=== PATIENT | male | born 1960 | race Caucasian/White ===

== ENCOUNTER 2021-12-04 19:31 | Emergency (ER) | payer BC, OTHER ==
[~2021-12-04] VITALS: Ht 175.3 cm; Wt 56.7 kg
[~2021-12-04 19:31] MED LIST: CHLO25CA22 PO
--- NOTE | 2021-12-04 20:40 | NUR ---
[id number] FOR PALPITATIONS INTERMITTENTLY TODAY THAT HAVE SINCE RESOLVED. PT IS NOTED VERY ANXIOUS. PT HAD A CARDIOLIGST APPT TODAY. PT AWAKE AND ALERT BREATHING EVEN AND UNLABORED. ALL V/S WNL.
[2021-12-04 21:12] LABS: BASOPHILS % (AUTO) 0.7 % (0.0-2.0); HEMATOCRIT 43 % (39-51); HEMOGLOBIN 14.4 g/dL (13.5-17.5); LYMPHOCYTES # (AUTO) 1.2 K/uL (0.8-4.8); LYMPHOCYTES % (AUTO) 22.6 % (20.0-44.0); MEAN CORPUSCULAR HGB CONC 33 g/dl (31.0-36.0); MEAN CORPUSCULAR VOLUME 86 fL (80-96); MONOCYTES # (AUTO) 0.5 K/uL (0.1-1.30); MONOCYTES % (AUTO) 8.9 % (2.0-12.0); NEUTROPHILS # (AUTO) 3.5 K/uL (1.8-8.9); NEUTROPHILS % (AUTO) 64.8 % (43.0-81.0); PLATELET COUNT (AUTO) 176 K/uL (150-450); RED BLOOD CELL COUNT(AUTO) 5.01 MIL/uL (4.5-6.0); WHITE BLOOD COUNT (AUTO) 5.3 K/uL (4.3-11.0)
[2021-12-04 21:27] LABS: CALCIUM, SERUM 9.4 mg/dL (8.5-10.1); CARBON DIOXIDE 28 mmol/L (21-32); CHLORIDE 103 mmol/L (98-107); GLUCOSE 92 mg/dL (74-106); POTASSIUM 3.9 mmol/L (3.5-5.1); SODIUM SERUM 140 mmol/L (136-145); UREA NITROGEN, BLOOD 14 mg/dL (7-18)
[2021-12-04 21:32] LABS: ALANINE AMINOTRANSFERASE 16 U/L (12-78); ALKALINE PHOSPHATASE 74 U/L (46-116); ASPARTATE AMINOTRANSFERASE 14 U/L (15-37); BILIRUBIN,DIRECT 0.2 mg/dL (0.0-0.2); TOTAL PROTEIN, SERUM 7.5 g/dL (6.4-8.2)
[2021-12-04] MEDS ORDERED: LORAZEPAM 1 MG TABLET PO ONE (22:30)
[2021-12-04] MEDS ORDERED: LORAZEPAM 1 MG TABLET ONE (22:35)
[2021-12-05 00:12] VITALS: BP 132/83
--- NOTE | 2021-12-05 00:12 | NUR ---
Patient discharged to home in stable condition. Written and verbal after care instructions given. Patient verbalizes understanding of instruction.
== END 2021-12-05 00:13 | disposition home or self-care (01) ==
LOC: ER 19:33
DX: F41.9 Anxiety disorder, unspecified (principal); I48.91 Unspecified atrial fibrillation; I10 Essential (primary) hypertension; K21.9 Gastro-esophageal reflux disease without esophagitis; Z88.0 Allergy status to penicillin; Z79.899 Other long term (current) drug therapy
CPT/HCPCS: 36415; 71045-TC; 80048-TC; 80076-TC; 84484-TC; 85025-TC

== ENCOUNTER 2023-07-21 12:02 | Inpatient (IN) | payer OTHER, MEDICARE ==
[~2023-07-21] VITALS: Ht 175.3 cm; Wt 70.3 kg
[2023-07-21] MEDS ORDERED: METOPROLOL TARTRATE INJ 5 MG/5 ML AMPUL IVP ONE (12:30)
[2023-07-21] MEDS ORDERED: METOPROLOL TARTRATE INJ 5 MG/5 ML AMPUL ONE (12:36)
[2023-07-21 12:58] LABS: BASOPHILS % (AUTO) 0.6 % (0.0-2.0); EOSINOPHILS # (AUTO) 0.3 K/uL (0.0-0.7); EOSINOPHILS % (AUTO) 3.9 % (0.0-6.0); HEMATOCRIT 46 % (39-51); HEMOGLOBIN 15.3 g/dL (13.5-17.5); MEAN CORPUSCULAR HEMOGLOBIN 29 PG (26.0-33.0); MEAN CORPUSCULAR HGB CONC 33 g/dl (31.0-36.0); MEAN CORPUSCULAR VOLUME 87 fL (80-96); MONOCYTES # (AUTO) 0.4 K/uL (0.1-1.30); MONOCYTES % (AUTO) 6.6 % (2.0-12.0); NEUTROPHILS # (AUTO) 3.9 K/uL (1.8-8.9); NEUTROPHILS % (AUTO) 58.9 % (43.0-81.0); PLATELET COUNT (AUTO) 176 K/uL (150-450); RED BLOOD CELL COUNT(AUTO) 5.26 MIL/uL (4.5-6.0); RED CELL DISTRIBUTION WIDTH 13.1 % (11.5-15.0); WHITE BLOOD COUNT (AUTO) 6.7 K/uL (4.3-11.0)
[2023-07-21 13:10] LABS: CALCIUM, SERUM 9.4 mg/dL (8.5-10.1); CARBON DIOXIDE 28 mmol/L (21-32); CHLORIDE 100 mmol/L (98-107); CREATININE 0.9 mg/dL (0.6-1.3); GLUCOSE 167 mg/dL (74-106); POTASSIUM 3.8 mmol/L (3.5-5.1); SODIUM SERUM 136 mmol/L (136-145); UREA NITROGEN, BLOOD 16 mg/dL (7-18)
[2023-07-21 13:25] LABS: NT-PRO BNP 166 pg/mL (0-125)
[2023-07-21] MEDS ORDERED: METOPROLOL TARTRATE 25 MG TABLET PO ONE (15:00)
[2023-07-21] MEDS ORDERED: METOPROLOL TARTRATE 50 MG TABLET ONE (15:26)
[2023-07-21] MEDS ORDERED: METO-357 PO (15:28)
[2023-07-21] MEDS ORDERED: MIRT7.5T10 PO (15:28)
[2023-07-21] MEDS ORDERED: APIX5TAB PO (15:28)
[2023-07-21] MEDS ORDERED: LOSA100T31 PO (15:28)
[2023-07-21] MEDS ORDERED: MAGNESIUM HYDROXIDE 30 ML UDC PO PRN (16:30)
[2023-07-21] MEDS ORDERED: ACETAMINOPHEN 325 MG TABLET PO PRN (16:30)
[2023-07-21] MEDS ORDERED: Z GUARD REMEDY 4 OZ OINT TP PRN (16:30)
[2023-07-21] MEDS ORDERED: MORPHINE SULFATE INJ 2 MG/ML DISP.SYRIN IV PRN (16:30)
[2023-07-21] MEDS ORDERED: CLONIDINE HCL 0.1 MG TABLET PO PRN (16:30)
[2023-07-21] MEDS ORDERED: ONDANSETRON HCL/PF 4 MG/2 ML VIAL IVP PRN (16:30)
[2023-07-21] MEDS ORDERED: MAG HYDROX/AL HYDROX/SIMETH 30 ML UDC PO PRN (16:30)
[2023-07-21] MEDS ORDERED: APIXABAN 5 MG TABLET ONE (17:19)
[2023-07-21] MEDS: APIXABAN 5 MG TABLET PO SCH (17:29)
[2023-07-21] MEDS ORDERED: MIRTAZAPINE 15 MG TABLET ONE (21:59)
[2023-07-21] MEDS ORDERED: MIRTAZAPINE 15 MG TABLET PO SCH (22:00)
[2023-07-22 07:55] VITALS: O2SAT 100
[2023-07-22] MEDS ORDERED: LOSARTAN POTASSIUM 50 MG TABLET PO SCH (09:00)
[2023-07-22] MEDS: METOPROLOL SUCCINATE 25 MG TAB.SR.24H PO SCH ×2 (10:00→17:26)
[2023-07-22] MEDS: APIXABAN 5 MG TABLET PO SCH ×2 (10:19→17:22)
[2023-07-22 12:07] VITALS: BP 136/67; TEMP 98; O2SAT 98
[2023-07-22 12:40] LABS: CREATININE 0.8 mg/dL (0.6-1.3); MAGNESIUM 2.1 mg/dL (1.8-2.4); PHOSPHORUS 2.8 mg/dL (2.5-4.9); POTASSIUM 3.8 mmol/L (3.5-5.1)
[2023-07-22 13:11] LABS: BASOPHILS % (AUTO) 0.5 % (0.0-2.0); EOSINOPHILS # (AUTO) 0.1 K/uL (0.0-0.7); EOSINOPHILS % (AUTO) 1.2 % (0.0-6.0); HEMATOCRIT 44 % (39-51); HEMOGLOBIN 14.9 g/dL (13.5-17.5); LYMPHOCYTES # (AUTO) 1.5 K/uL (0.8-4.8); LYMPHOCYTES % (AUTO) 23.6 % (20.0-44.0); MEAN CORPUSCULAR HEMOGLOBIN 29 PG (26.0-33.0); MEAN CORPUSCULAR HGB CONC 34 g/dl (31.0-36.0); MEAN CORPUSCULAR VOLUME 86 fL (80-96); MONOCYTES # (AUTO) 0.4 K/uL (0.1-1.30); MONOCYTES % (AUTO) 6.9 % (2.0-12.0); NEUTROPHILS # (AUTO) 4.2 K/uL (1.8-8.9); NEUTROPHILS % (AUTO) 67.8 % (43.0-81.0); PLATELET COUNT (AUTO) 187 K/uL (150-450); RED CELL DISTRIBUTION WIDTH 12.8 % (11.5-15.0); WHITE BLOOD COUNT (AUTO) 6.2 K/uL (4.3-11.0)
[2023-07-22 15:57] VITALS: BP 133/79; TEMP 97.4; O2SAT 99
[2023-07-22 17:26] VITALS: BP 133/79
== END 2023-07-22 18:35 | disposition home or self-care (01) | DRG 310 ==
LOC: ER 12:08 → TRANSITION 17:48 → TELE 07-22 08:25
PROVIDERS: ADMIT Internal Medicine; ATTEND Internal Medicine
DX: I48.91 Unspecified atrial fibrillation (principal); I10 Essential (primary) hypertension; K21.9 Gastro-esophageal reflux disease without esophagitis; K58.9 Irritable bowel syndrome, unspecified; Z88.0 Allergy status to penicillin; Z79.01 Long term (current) use of anticoagulants; Z79.899 Other long term (current) drug therapy; F17.200 Nicotine dependence, unspecified, uncomplicated; Z82.49 Family history of ischemic heart disease and other diseases of the circulatory system; Z83.3 Family history of diabetes mellitus; F10.91 Alcohol use, unspecified, in remission; R00.2 Palpitations
CPT/HCPCS: 36415; 71045-TC; 80048-TC; 83735-TC; 83880; 84100-TC; 84484-TC; 85025-TC; 93307-TC; G0378; J3490

== ENCOUNTER 2023-08-30 14:14 | Emergency (ER) | payer OTHER, MEDICARE ==
[~2023-08-30] VITALS: Ht 170.2 cm; Wt 67.1 kg
[~2023-08-30 14:14] MED LIST changes: +APIX5TAB PO; -CHLO25CA22 PO; +LOSA100T31 PO; +METO-357 PO; +MIRT7.5T10 PO
[2023-08-30 14:24] VITALS: BP 150/86; TEMP 98.2
[2023-08-30] MEDS ORDERED: IBUPROFEN 600 MG TABLET ONE (14:38)
[2023-08-30] MEDS: IBUPROFEN 600 MG TABLET PO ONE (14:38)
[2023-08-30 16:29] VITALS: O2SAT 100
== END 2023-08-30 16:34 | disposition home or self-care (01) ==
LOC: ER 14:17
DX: R68.84 Jaw pain (principal); I10 Essential (primary) hypertension; I48.91 Unspecified atrial fibrillation; Z88.0 Allergy status to penicillin
CPT/HCPCS: 70486-TC

== ENCOUNTER 2025-04-23 19:57 | Emergency (ER) | payer MEDICARE, OTHER ==
[~2025-04-23] VITALS: Ht 175.3 cm; Wt 65.8 kg
[2025-04-23 20:27] VITALS: BP 146/88; TEMP 98
[2025-04-23 20:41] VITALS: O2SAT 99
== END 2025-04-23 20:42 | disposition home or self-care (01) ==
LOC: ER 19:59
DX: T80.62XA Other serum reaction due to vaccination, initial encounter (principal); I11.9 Hypertensive heart disease without heart failure; I48.91 Unspecified atrial fibrillation; F41.9 Anxiety disorder, unspecified; Z79.01 Long term (current) use of anticoagulants; Z79.899 Other long term (current) drug therapy; Z85.828 Personal history of other malignant neoplasm of skin; Z88.0 Allergy status to penicillin; Y92.89 Other specified places as the place of occurrence of the external cause